=== PATIENT | male | born 1955 | race Caucasian/White ===

== ENCOUNTER 2016-09-29 08:34 | Observation (INO) | payer BC ==
--- NOTE | ~2016-09-29 | HP ---
Unit #: [id number] #: [id number] Patient: MERYL PEREZ [id number] [facility] [address] [facility]. [place], [place] [address] [id number] MR#: [id number] NAME: MERYL PEREZ. ROOM: 567 Age: 60 Sex: M Admission Date: 09/29/2016 : 1955 Attending Physician: Shital Mayberry M.D. Primary Care Physician: Zaira Nunez M.D. HISTORY AND PHYSICAL HISTORY OF PRESENT ILLNESS This is a 60-year-old white male who is known to Dr. Deng and has a history of nonobstructive coronary artery disease per cardiac catheterization in 2009. At that time, he had first septal engraver hand soft metals that had 90% stenosis in one view that was not amenable to intervention. He had a stress test last year which he was told was normal but no details are available. He is known to have hypertension, hyperlipidemia, diabetes, and chronic kidney disease where he follows Dr. Wilfredo Lazo. The patient presents to the emergency room with what he says is chest pain. He woke up this a.m. with "chest pain" that was nonradiating to his neck, arm, or jaw. He had associated nausea and dyspnea. His pain was made worse with sitting and standing. When asked the location of his chest pain, he points to the epigastric area. He took his regular medications and had relief after two hours. He came to the emergency room for further treatment. His initial troponin is negative. EKG shows no acute changes. He is known to have chronic kidney disease and his creatinine is 1.9. Prior to this morning, he has had no complaints of chest pain. He states he has "passed out" under certain conditions where he relates to hypotension. No episodes for the past two months. PAST MEDICAL HISTORY 1. Cardiac catheterization 04/[address] Deng at [facility] that revealed left main with luminal irregularities. Ostial LAD 40%. First septal engraver hand soft metals with 90% stenosis but not amenable to intervention. Mid LAD 40% to 45%. Diagonal branch 20% to 30%. Circumflex with luminal irregularities up to 20% to 30%. First marginal branch 45%. Right coronary artery, nondominant vessel, with mild luminal irregularities. 2. Stress test a year ago, told negative, no details available. 3. Hypertension with recent hypotension. 4. Hyperlipidemia. 5. Diabetes mellitus type 2. 6. Chronic kidney disease, stage 3, followed by Dr. Wilfredo Lazo. 7. Seizures, questionable heat related. 8. TIA. 9. Diabetic neuropathy. 10. Gout. 11. Obesity. 12. Nonsmoker. PAST SURGICAL HISTORY 1. Left finger surgery. 2. Tonsillectomy. Unit #: [id number] #: [id number] Patient: MERYL PEREZ 3. Right knee surgery x2. 4. 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 HOME MEDICATIONS 1. NovoLog per insulin pump. 2. Singulair 10 mg daily p.r.n. 3. Prednisone 40 mg daily. 4. Lasix 40 mg daily. 5. Losartan/hydrochlorothiazide 100/25 mg daily. 6. Carvedilol 25 mg daily. ALLERGIES Adhesive tape. SOCIAL HISTORY The patient is and retired. His works for [employer]. [employer]. He denies illicit drug or alcohol use. He has never smoked. FAMILY HISTORY Negative for coronary artery disease. REVIEW OF SYSTEMS CONSTITUTIONAL: Negative for fever or chills. Reports no weight loss or weight gain. HEENT: No headache, hearing or vision changes. No difficulty with swallowing. No dizziness. CARDIOVASCULAR: Chest pain as described in the HPI. Denies palpitations. No paroxysmal nocturnal dyspnea or orthopnea. No syncope or near syncope recently. RESPIRATORY: Dyspnea that accompanies chest pain. No cough or hemoptysis. GASTROINTESTINAL: Positive for epigastric pain and . No constipation or melena. EXTREMITIES: Negative for lower extremity edema. Reports recent gout flare. PHYSICAL EXAMINATION VITAL SIGNS: Blood pressure , heart rate . GENERAL: This is a who is in no acute respiratory distress. NEUROLOGIC: is awake, alert, and oriented without focal weaknesses. NECK: Trachea is midline. No thyromegaly or lymphadenopathy. No jugular venous distention. LUNGS: Clear to auscultation bilaterally without rales, rhonchi or wheezes. HEART: S1, S2. Heart sounds normal. No murmurs, rubs, or clicks. Irregularly irregular rhythm. ABDOMEN: Soft, with bowel sounds present. EXTREMITIES: Without leg edema. SKIN: Warm and dry. DIAGNOSTIC STUDIES LABORATORY: Hemoglobin 13.0, hematocrit 39.6, platelet count 302, white count 16.0. Sodium 137, potassium 4.0, BUN 42, creatinine 1.9, glucose 276. BNP 97. IMAGING: Chest x-ray shows low lung volumes. No active disease. CARDIOVASCULAR: EKG normal sinus rhythm with a rate of 65 beats per minute. No acute ischemic changes. Unit #: [id number] #: [id number] Patient: MERYL PEREZ IMPRESSION 1. Atypical chest pain. 2. Questionable gastroesophageal reflux disease. 3. Coronary artery disease. 4. Hypertension. 5. Hyperlipidemia. 6. Diabetes mellitus type 2. 7. Leukocytosis secondary to chronic steroid use. 8. Chronic kidney disease, stage 3. PLAN 1. The patient's chest pain is atypical for significant ischemic heart disease. He does have multiple risk factors and known coronary artery disease. Patient reported recent stress test at [facility] [place] [facility] last year that was negative. Will obtain records from [facility] [place] [facility]. 2. The patient refused cardiac catheterization at this facility and only wants it done by Dr. Deng. 3. Continue to trend troponin to rule out myocardial infarction. 4. Start PPI for possible GERD. 5. Add Lovenox and aspirin. 6. The patient wants to regulate his blood glucose levels himself. Will allow. 7. Follow up with Dr. Deng after discharge. 8. TSH and lipid profile will be obtained. Will start on lipid-lowering agent if necessary. Dictated by Lewis Shook M.D. AEP/lilly TD: 09/29/2016 17:54 JOB #: [id number] CC: Edinson Houston Jr., M.D. HISTORY AND PHYSICAL Page 1 of 1 X Liam Salcido APRN HISTORY AND PHYSICAL
--- NOTE | ~2016-09-29 | EKG ---
PATIENT: MERYL PEREZ UNIT #: [id number] Ventricular Rate: 65 BPM Atrial Rate: 65 BPM P-R Interval: 158 ms QRS Duration: 90 ms Q-T Interval: 418 ms QTC Calculation(Bezet): 434 ms P [place]: 35 degrees Calculated R [place]: 1 degrees Calculated T [place]: 48 degrees Diagnosis Line: Normal sinus rhythm Diagnosis Line: Normal ECG Diagnosis Line: When compared with ECG of 02-JUL-2012 07:58, Diagnosis Line: Nonspecific T wave abnormality has replaced Diagnosis Line: inverted T waves in Inferior leads Diagnosis Line: Confirmed by SHERLY ROTH MD ([id number]) on Diagnosis Line: 09/30/2016 1:29:00 PM INTERPRETING MD: IRA WAY
--- NOTE | ~2016-09-29 | BMI ---
[facility] Nutrition Therapy DATE: 09/30/16 Patient: MERYL PEREZ Physician: ATTPRE Address: [address] Room/Bed: [address] [place] [address], Zip: [place] [address] Admit Date: 09/29/16 Date of : [birth year] Height: 5 5 Weight: 254 115.5 HIGH BMI NOTE: DX: 60 y/o male admitted with chest pain ANTHROPOMETRICS: Ht: 65", Wt: 254 lbs, BMI: 42 (Stage III obese) DIET: Healthy heart INTERVENTION: + consistent carb restriction, meds/fluids per MD RECOMMENDATIONS: Continue healthy heart restriction to promote a gradual weight loss towards a healthy BMI range. Please add consistent carb restriction to current diet order due to PMH of diabetes. Respectfully, Cass Hurtado, EVA, LD [facility] cc: client file
--- NOTE | ~2016-09-29 | CR72 ---
[facility] A Service of [facility] & [facility] RADIOLOGY TEXT RESULTS PATIENT: MERYL PEREZ LOCATION: [facility] : [birth year] UNIT #: [id number] AGE: [address]: Johnna Reyes MD SEX: M ORDER DR: [id number] [facility] [address] [place], [place] [address] [id number] MR#: [id number] Acc #: [id number] NAME: MERYL PEREZ. : 1955 SEX: M STUDY DATE/TIME: 09/29/2016 10:34 UNIT: [facility] ROOM: STUDY DESCRIPTION: CR Chest Single View Portable Attending Physician: Johnna Reyes M.D. Ordering Physician: Johnna Reyes M.D. Primary Care Physician: Zaira Nunez M.D. MEDICAL IMAGING REPORT This report is preliminary unless electronic signature is present EXAM Chest portable 09/29/2016 1034 hours. HISTORY 60-year-old with chest pain, shortness of air today. History of hypertension, diabetes and prior CVA. COMPARISON None. FINDINGS Portable upright chest demonstrates low lung volumes. There is mild cardiomegaly and a tortuous aorta. There are benign calcified right-sided lymph nodes and calcified granulomata in the right lung. There are no acute pulmonary or pleural findings. IMPRESSION 1. Low lung volumes with normal heart size and tortuous aorta. 2. Benign calcified lymph nodes and calcified granulomata on the right. No acute cardiopulmonary findings. Dictated by... Vira Amin M.D. THIS IS AN ELECTRONICALLY VERIFIED REPORT Vira Amin M.D. at 09/29/2016 2:26 PM EVELIO/fabiano TD: 09/29/2016 13:36 JOB #: [id number] MEDICAL IMAGING REPORT Page 1 of 1 COPY
[~2016-09-29 08:34] MED LIST: CARVEDILOL25 MG PO; HUMALOG100 U/M1 SQ; KLOR-CON PO; LASIX20 MG PO; LIPITOR20 MG PO; LISINOPRIL10 MG PO; NORVASC10 MG PO
[2016-09-29 10:17] LABS: POC - TROPONIN <0.05 ng/mL (<=0.05)
[2016-09-29 10:20] LABS: BASOPHIL# 0.1 X10e3 (0-0.3); BASOPHIL% 0.4 % (0-2.5); EOSINOPHIL# 0.1 X10e3 (0-0.7); EOSINOPHIL% 0.5 % (0.0-7.0); HEMATOCRIT 39.6 % (38.0-50.0); LYMPHOCYTE% 18.8 % (17.0-45.0); MEAN CELL VOLUME 85.9 FL (83-96); MEAN CORPUSCULAR HEMOGLOBIN 28.1 PG (28-34); MEAN CORPUSCULAR HGB CONC 32.7 g/dL (30-36); MEAN PLATELET VOLUME 8.1 FL (6.5-11.5); MONOCYTE# 1.1 X10e3 (0-1.0); MONOCYTE% 6.8 % (3.0-12.0); NEUTROPHIL# 11.8 X10e3 (1.5-7.1); NEUTROPHIL% 73.5 % (40-75); PLATELET COUNT 302 X10e3 (140-420); RED BLOOD COUNT 4.61 X10e (3.90-5.60); RED CELL DISTRIBUTION WIDTH 12.2 % (11.0-15.5)
[2016-09-29 10:21] LABS: DIFF IND YES
[2016-09-29] MEDS ORDERED: KEFLEX500 MG PO (10:27)
[2016-09-29] MEDS ORDERED: LASIX PO (10:27)
[2016-09-29] MEDS ORDERED: PREDNISONE PO (10:27)
[2016-09-29] MEDS ORDERED: NOVOLOG100 UNITS/ (10:28)
[2016-09-29] MEDS ORDERED: LOSARTAN-HCTZ1 EAC1 PO (10:28)
[2016-09-29] MEDS ORDERED: CARVEDILOL25 MG PO (10:28)
[2016-09-29] MEDS ORDERED: SINGULAIR PO (10:29)
[2016-09-29 10:32] LABS: URINE SOURCE CLEAN CATCH
[2016-09-29 10:35] LABS: URINE APPEARANCE CLEAR; URINE BILIRUBIN NEG (NEG); URINE BLOOD NEG (NEG); URINE COLOR YELLOW; URINE GLUCOSE >1000 MG/DL (NEG); URINE KETONE NEG (NEG); URINE LEUKOCYTE ESTERASE NEG (NEG); URINE NITRATE NEG (NEG); URINE PROTEIN NEG (NEG); URINE SPECIFIC GRAVITY 1.012 (1.003-1.035); URINE UROBILINOGEN 0.2 MG/DL (NEG)
[2016-09-29 10:38] LABS: ALBUMIN SERUM 2.9 g/dL (3.5-5.0); BILIRUBIN, DIRECT 0.1 mg/dL (0.0-0.2); BILIRUBIN,INDIRECT 0.1 mg/dL (0.0-0.9); BILIRUBIN,TOTAL 0.2 mg/dL (0.2-2.0); BUN/CREATININE RATIO 22.1; CALCIUM SERUM 9.4 mg/dL (8.4-10.2); CREATININE SERUM 1.9 mg/dL (0.6-1.4); PROTEIN TOTAL SERUM 7.2 g/dL (6.0-8.3)
[2016-09-29 10:42] LABS: CULTURE INDICATED? NO
[2016-09-29 10:51] LABS: AMPHETAMINE NEG (NEG); BARBITURATES NEG (NEG); BENZODIAZEPINES NEG (NEG); COCAINE NEG (NEG); MARIJUANA NEG (NEG); OPIATES NEG (NEG); TRICYCLIC ANTIDEPRESSANTS NEG (NEG); U METHADONE NEG (NEG)
[2016-09-29 10:52] LABS: PLATELET ESTIMATE NORMAL (NORMAL); RBC NORMAL YES
[2016-09-29 12:24] LABS: POC - CKMB 3.3 ng/mL (0.0-7.9); POC - TROPONIN <0.05 ng/mL (<=0.05)
[2016-09-29 18:26] LABS: CK TOTAL 58 IU/L (36-174)
[2016-09-30 01:34] LABS: CK TOTAL 46 IU/L (36-174)
[2016-09-30 01:42] LABS: CHOLESTEROL 250 mg/dL (0-200); HDL CHOLESTEROL 31 mg/dL (29-75); LDL/HDL RATIO 5 RATIO (0-4); TRIGLYCERIDES 375 mg/dL (10-160)
[2016-09-30 01:43] LABS: LDL CHOLESTEROL 144 mg/dL (-130)
[2016-09-30] MEDS ORDERED: LIPITOR80 MG PO (11:15)
[2016-09-30] MEDS ORDERED: NITROSTAT0.4 MG SL (11:15)
== END 2016-09-30 12:05 | disposition home or self-care (01) | DRG 313 ==
LOC: CED 08:34 → CEDOF 13:20 → C5C 14:23 → CED 14:23 → CEDOF 14:23 → C5C 16:13 → CEDOF 16:13 → C5C 09-30 12:05
PROVIDERS: Internal Medicine Cardiovascular Disease; Student in an Organized Health Care Education/Training Program
DX: R07.89 Other chest pain (principal); I25.10 Atherosclerotic heart disease of native coronary artery without angina pectoris; I12.9 Hypertensive chronic kidney disease with stage 1 through stage 4 chronic kidney disease, or unspecified chronic kidney disease; E11.22 Type 2 diabetes mellitus with diabetic chronic kidney disease; N18.3 Chronic kidney disease, stage 3 (moderate); E78.5 Hyperlipidemia, unspecified; D72.829 Elevated white blood cell count, unspecified; T38.0X5A Adverse effect of glucocorticoids and synthetic analogues, initial encounter; Z79.52 Long term (current) use of systemic steroids; Z79.4 Long term (current) use of insulin; Z96.41 Presence of insulin pump (external) (internal); I37.1 Nonrheumatic pulmonary valve insufficiency; J84.10 Pulmonary fibrosis, unspecified; I89.8 Other specified noninfective disorders of lymphatic vessels and lymph nodes; Z79.01 Long term (current) use of anticoagulants; Z79.82 Long term (current) use of aspirin
CPT/HCPCS: 36415; 71010; 80048; 80061; 80076; 80307; 81003; 82550; 82553; 82947; 83880; 84443; 84484; 85025; 93005; 93306; 94760; 96361; 96374; 99285; C9113; G0378; J1650; J2405